=== PATIENT | male | born 1975 | race African-American/Black ===

== ENCOUNTER 2020-08-20 16:18 | Emergency (ER) | payer OTHER ==
[~2020-08-20] VITALS: Ht 185.4 cm; Wt 93.0 kg
[2020-08-20 18:34] VITALS: BP 131/78
== END 2020-08-20 18:35 | DRG 563 ==
LOC: ED 16:18
DX: S93.402A Sprain of unspecified ligament of left ankle, initial encounter (principal); I10 Essential (primary) hypertension; K21.9 Gastro-esophageal reflux disease without esophagitis; X50.0XXA Overexertion from strenuous movement or load, initial encounter; X50.9XXA Other and unspecified overexertion or strenuous movements or postures, initial encounter; Y93.67 Activity, basketball